=== PATIENT | male | born 2000 | race Asian ===

== ENCOUNTER 2020-11-07 07:33 | Emergency (ER) | payer OTHER ==
[~2020-11-07] VITALS: Ht 172.7 cm; Wt 50.0 kg
[2020-11-07 07:44] VITALS: BP 115/82; TEMP 97.9
[2020-11-07] MEDS ORDERED: HYDROCORTISO28.35 GM TOP ×2 (07:56→08:25)
[2020-11-07 08:06] VITALS: PULSE 83
== END 2020-11-07 08:30 | disposition home or self-care (01) ==
LOC: COL.ER 07:33
DX: L25.9 Unspecified contact dermatitis, unspecified cause (principal)